=== PATIENT | male | born 2000 | race Caucasian/White ===

== ENCOUNTER 2023-03-29 04:11 | Day surgery (SDC) | payer OTHER ==
[2023-03-25 17:14] VITALS: BMI 25.1
[2023-03-29] MEDS ORDERED: ELECTROLYTE-148 SOLN 1,000 ML IV SCH (12:15)
[2023-03-29] MEDS ORDERED: LIDOCAINE HCL 2% (20ML MULTI-DOSE VIAL) ONE (12:20)
[2023-03-29] MEDS ORDERED: ceFAZolin SODIUM 1 GM VIAL IVPB ONE (12:24)
[2023-03-29] MEDS ORDERED: LIDOCAINE HCL 2% (50ML VIAL) INF ONE (12:29)
[2023-03-29] MEDS ORDERED: ONDANSETRON 4 MG/2 ML VIAL IVPUSH PRN (13:18)
[2023-03-29] MEDS ORDERED: ACETAMINOPHEN 1000 MG/100 ML BAG IVPB ONE ×2 (13:19→13:41)
[2023-03-29] MEDS ORDERED: ACETAMINOPHEN INJECTION 100 ML IVPB ONE (13:26)
[2023-03-29] MEDS ORDERED: LACTATED RINGERS SOLUTION 1,000 ML IV SCH (13:30)
[2023-03-29 18:05] VITALS: RESP 20; TEMP 97.5
[2023-03-29 18:14] VITALS: BP 128/62; PULSE 65
== END 2023-03-29 15:15 | disposition home or self-care (01) ==
LOC: JASU-SURG 04:11
PROVIDERS: ATTEND Urology
PROC: 0VTTXZZ Resection of Prepuce, External Approach (ICD-10-PCS; principal; 2023-03-29 12:00)
DX: N47.1 Phimosis (principal)
CPT/HCPCS: 88304-TC; 94760